=== PATIENT | male | born 1995 | race Caucasian/White ===

== ENCOUNTER 2017-09-09 19:29 | Emergency (ER) | payer BC ==
[2017-09-09 19:37] VITALS: TEMP 98.8
--- NOTE | 2017-09-09 19:53 | CPEKG ---
Heart Rate: 90 RR Interval: 667 P-R Interval: 140 QRSD Interval: 88 QT Interval: 348 QTC Interval: 426 P [place]: 80 QRS [place]: 33 T Wave [place]: 32 EKG Severity - NORMAL ECG - EKG Impression: SINUS RHYTHM Electronically Signed By: Roberto Hutchins 09-Sep-2017 20:07:48
--- NOTE | 2017-09-09 20:15 | EDPHY ---
H & P Smoking Status: Current every day smoker Time Seen by Provider: 09/09/17 19:51 HPI/ROS: CHIEF COMPLAINT: Chest pain HISTORY OF PRESENT ILLNESS: 22-year-old male presents to the emergency department with substernal chest pain that began abruptly approximately 5 hr ago. Patient states that he was just sitting there studying and then developed pain in the left side of his chest. He has never had this pain in the past. He does not feel short of breath. It does cause pain with deep breathing. Denies back pain. Denies urinary symptoms. Denies headache. No fevers or chills. No URI symptoms. Patient admits to using cocaine last week. He does smoke cigarettes. REVIEW OF SYSTEMS: Constitutional: No fever, no chills. Eyes: No double or blurry vision. ENT: No sore throat. Respiratory: No cough, no shortness of breath. Cardiac: Chest pain. Gastrointestinal: No abdominal pain, vomiting or diarrhea. Genitourinary: No dysuria. Musculoskeletal: No neck or back pain. Skin: No rashes. Neurological: No headache. 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 37.1, 159/91, 96% on room air. Eyes: Pupils equal and round. Extraocular motions are all intact. ENT: Mouth: Mucous membranes moist. Respiratory: No wheezing, rhonchi, or rales, lungs are clear to auscultation. Patient does have mild pain with palpation to to the anterior aspect of his chest just left lateral of the sternum. No palpable crepitus or other bony abnormality. Cardiovascular: Regular rate and rhythm. Gastrointestinal: Abdomen is soft and nontender, no masses, no rebound or guarding, bowel sounds normal. Neurological: Alert and oriented x 3, cranial nerves II through XII grossly intact Skin: Warm and dry, no rashes. Musculoskeletal: Nontender to palpate along the cervical, thoracic or lumbar spine. Neck is supple. Extremities: Full range of motion and no peripheral edema. Psychiatric: Patient is oriented X 3, there is no agitation. (JoeAlycia) Constitutional: Initial Vital Signs Temperature (C) 37.1 C 09/09/17 19:36 Heart Rate 97 09/09/17 19:36 Respiratory Rate 20 09/09/17 19:36 Blood Pressure 159/91 H 09/09/17 19:36 O2 Sat (%) 96 09/09/17 19:36 O2 Delivery Mode Room Air Allergies/Adverse Reactions: No Known Allergies Allergy (Unverified 09/09/17 19:35) Home Medications: Medication Instructions Recorded Adderall 10 MG (*) 09/09/17 NK [No Known Home Meds] 09/09/17 Medical Decision Making - Diagnostics Imaging: I viewed and interpreted images myself - Diagnostics EKG Interpretation: EKG reveals normal sinus rhythm. This was interpreted by Dr. Roberto Hutchins. See interpretation in trace master. (Alycia Diaz) Imaging Results: Imaging Impressions Chest X-Ray 09/09/17 20:05 Impression: Normal. No pneumothorax or effusion. ED Course/Re-evaluation: 22-year-old male presents to the emergency department with chest pain. Patient admits to using cocaine last week. Case was discussed with Dr. Roberto Hutchins, secondary supervising physician, who did not directly evaluate the patient but agrees with treatment and plan. EKG reveals normal sinus rhythm. D-dimer was negative. I doubt pulmonary embolism. He is not tachycardic. No recent travel. No calf pain or swelling. No recent surgeries. Perc rule is negative. The initial troponin was negative. This will be repeated 3 hr after the initial troponin. Chest x-ray is unremarkable. Patient was given oral Tylenol and ibuprofen for pain. Patient now has reproducible pain with palpation to the anterior aspect of his chest. Repeat troponin was negative. (Alycia Diaz) Differential Diagnosis: Chest pain including but not limited to myocardial ischemia, pulmonary embolus, chest wall pain, pleural inflammation and pulmonary infectious causes. (Alycia Diaz) Other Provider: PHYSICIAN DOCUMENTATION: The patient was evaluated and managed by the Physician Branch Credit Counselor and myself. I have reviewed the chart and agree with the findings and plan of care as documented. In addition, I examined the patient myself at 2009. History confirmed as left-sided chest pain just the left of the sternum, did cocaine about a week ago. Physical findings as follows: Regular rate rhythm without murmur, lungs clear to auscultation, speaks in full sentences. 12-lead EKG interpreted by me; official reading is in trace master. My interpretation is sinus rhythm without ST elevation or acute ischemic changes rate 90. Plan to consider discharge if 3 hr troponin and EKG is also negative. Low pretest suspicion for pulmonary embolism. I am the secondary supervising physician. (Roberto Hutchins) - Data Points Laboratory Results: Laboratory Results 09/09/17 20:22 09/09/17 20:22 09/09/17 09/09/17 09/09/17 23:19 20:22 20:22 WBC RBC Hgb Hct MCV MCH MCHC RDW Plt Count MPV Neut % (Auto) Lymph % (Auto) [place] % (Auto) Eos % (Auto) Baso % (Auto) Nucleat RBC Rel Count Absolute Neuts (auto) Absolute Lymphs (auto) Absolute Monos (auto) Absolute Eos (auto) Absolute Basos (auto) Absolute Nucleated RBC Immature Gran % Immature Gran # D-Dimer < 0.27 ug/mLFEU ug/mLFEU (0.00-0.50) Sodium 142 mEq/L mEq/L (135-145) Potassium 4.2 mEq/L mEq/L (3.5-5.2) Chloride 102 mEq/L mEq/L (97-110) Carbon Dioxide 22 mEq/l mEq/l (22-31) Anion Gap 18 mEq/L H mEq/L (8-16) BUN 12 mg/dL mg/dL (7-23) Creatinine 0.9 mg/dL mg/dL (0.7-1.3) Estimated GFR > 60 Glucose 90 mg/dL mg/dL (70-100) Calcium 11.4 mg/dL H mg/dL (8.5-10.4) Phosphorus 4.0 mg/dL mg/dL (2.5-4.5) Troponin I < 0.012 ng/mL ng/mL < 0.012 ng/mL ng/mL (0.000-0.034) (0.000-0.034) 09/09/17 20:22 WBC 8.12 10^3/uL 10^3/uL (3.80-9.50) RBC 5.31 10^6/uL 10^6/uL (4.40-6.38) Hgb 17.3 g/dL g/dL (13.7-17.5) Hct 49.1 % % (40.0-51.0) MCV 92.5 fL fL (81.5-99.8) MCH 32.6 pg pg (27.9-34.1) MCHC 35.2 g/dL g/dL (32.4-36.7) RDW 12.0 % % (11.5-15.2) Plt Count 297 10^3/uL 10^3/uL (150-400) MPV 10.4 fL fL (8.7-11.7) Neut % (Auto) 69.1 % % (39.3-74.2) Lymph % (Auto) 24.4 % % (15.0-45.0) [place] % (Auto) 5.2 % % (4.5-13.0) Eos % (Auto) 0.2 % L % (0.6-7.6) Baso % (Auto) 0.6 % % (0.3-1.7) Nucleat RBC Rel Count 0.0 % % (0.0-0.2) Absolute Neuts (auto) 5.61 10^3/uL 10^3/uL (1.70-6.50) Absolute Lymphs (auto) 1.98 10^3/uL 10^3/uL (1.00-3.00) Absolute Monos (auto) 0.42 10^3/uL 10^3/uL (0.30-0.80) Absolute Eos (auto) 0.02 10^3/uL L 10^3/uL (0.03-0.40) Absolute Basos (auto) 0.05 10^3/uL 10^3/uL (0.02-0.10) Absolute Nucleated RBC 0.00 10^3/uL 10^3/uL (0-0.01) Immature Gran % 0.5 % % (0.0-1.1) Immature Gran # 0.04 10^3/uL 10^3/uL (0.00-0.10) D-Dimer Sodium Potassium Chloride Carbon Dioxide Anion Gap BUN Creatinine Estimated GFR Glucose Calcium Phosphorus Troponin I Medications Given: Discontinued Medications Acetaminophen (Tylenol) 1,000 mg PO EDNOW ONE Stop: 09/09/17 21:48 Last Admin: 09/09/17 21:49 Dose: 1,000 mg Ibuprofen (Motrin) 600 mg PO EDNOW ONE Stop: 09/09/17 22:11 Last Admin: 09/09/17 22:52 Dose: 600 mg Departure - Departure Disposition: Home, Routine, Self-Care Clinical Impression: Chest pain Qualifiers: Chest pain type: unspecified Qualified Code(s): R07.9 - Chest pain, unspecified Condition: Good Instructions: Chest Pain (ED) Additional Instructions: You should not abuse cocaine or any other drug. You should stop smoking cigarettes. Return to the emergency department if you developed recurring chest pain especially if this is associated with activity, or any other concerns. Referrals: Marcus Coreas MD [Medical Doctor] - 2-3 days, call for appt. 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
[2017-09-09 20:55] LABS: PLATELET COUNT 297 10^3/uL (150-400)
[2017-09-09 21:46] VITALS: RESP 16
[2017-09-09] MEDS ORDERED: ACETAMINOPHEN 500 MG TAB PO ONE (21:47)
[2017-09-09] MEDS ORDERED: IBUPROFEN 600 MG TAB PO ONE (22:10)
--- NOTE | 2017-09-09 23:30 | CPEKG ---
Heart Rate: 85 RR Interval: 706 P-R Interval: 144 QRSD Interval: 96 QT Interval: 364 QTC Interval: 433 P [place]: 79 QRS [place]: 22 T Wave [place]: 35 EKG Severity - NORMAL ECG - EKG Impression: SINUS RHYTHM Electronically Signed By: Roberto Hutchins 10-Sep-2017 05:53:22
[2017-09-10 00:07] VITALS: BP 129/90; PULSE 84; O2SAT 96
== END 2017-09-10 00:05 | disposition home or self-care (01) ==
DX: R07.9 Chest pain, unspecified (principal)